=== PATIENT | female | born 1965 | race Hispanic/Latino ===

== ENCOUNTER 2020-08-23 09:09 | Inpatient (IN) | payer BC ==
[2020-08-19 15:13] VITALS: BP 150/93
--- NOTE | 2020-08-19 15:41 | PCM.EKG ---
[facility] Test Date: 2020-08-19 Test Time: 15:24:32 Pat Name: SALUD VOGEL Department: Room: Gender: F Senior Clinical Project Manager: LUIS EDUARDO : 1965 Requested By: MARCUS HASSAN Order Number: [id number] Reading MD: Measurements Intervals [place] Rate: 69 P: 53 [place]: 140 QRS: 38 QRSD: 82 T: 50 QT: 398 QTc: 426 Interpretive Statements Normal sinus rhythm No previous ECG available for comparison Please click the below link to view image of tracing.
[2020-08-19 15:45] LABS: MEAN CORP HGB 30.9 pg (26-34); PLATELET COUNT 292 10^3/uL (150-400); RED CELL DISTRIBUTION WIDTH 11.9 % (11.5-14.5)
[2020-08-19 15:46] LABS: BASOPHIL % 0.6 % (0.0-0.2); EOSINOPHIL # 0.1 10^3/uL (0.0-0.2); EOSINOPHIL % 0.9 % (0.0-5.0); LYMPHOCYTES # 2.03 10^3/uL1 (1.0-4.8); LYMPHOCYTES % 30.3 % (24.0-44.0); MONOCYTES # 0.4 10^3/uL (0.3-0.8); MONOCYTES % 5.8 % (5.0-12.0); NEUTROPHIL # 4.2 10^3/uL (1.8-7.7); NEUTROPHILS % 62.4 % (41.0-85.0)
[2020-08-19 16:03] LABS: CALCIUM 8.6 mg/dL (8.4-10.5); CARBON DIOXIDE 29.3 mmol/L (20.0-32)
--- NOTE | 2020-08-20 15:29 | NUR ---
ORTHO EDUCATION CLASS Ortho education presented verbally and written per request of Dr. Mccabe. Pt verbalized understanding of education. Signed: 08/20/20 at 1530 by TOÑITO Rosas OT
[2020-08-23] VITALS (26 sets, daily range): BP systolic 120–206; BP diastolic 75–105
[~2020-08-23] VITALS: Ht 162.6 cm; Wt 65.8 kg
--- NOTE | 2020-08-23 08:53 | PCM.HP ---
History of Present Illness Reason for Visit: (1) Osteoarthritis of left knee ICD Code: M17.12 - Unilateral primary osteoarthritis, left knee SNOMED: [id number] Was this Problem Present on Ad: Yes-DX present @time ofIP Hx of Present Illness patient complains of left knee pain worsening the past several months. Patient has tried cortisone injection and bracing in the past. Uses a cane to ambulate. Takes Ibuprofen and Tramadol for pain. Complains of night pain. Complains of pain with stairs. Review of Systems Constitutional: No: Fever, Chills, Sweats, Weakness, Malaise, Other Eyes: No: Pain, Vision change, Conjunctivae inflammation, Eyelid inflammation, Other, Redness ENT: No: Ear pain, Ear discharge, Nose pain, Nose discharge, Nose congestion, Mouth pain, Mouth swelling, Throat pain, Throat swelling, Other Respiratory: No: Cough, Dry, Shortness of breath, SOB with excertion, Wheezing, Hemoptysis, Pleuritic Pain, Sputum, Wheezing, Other Cardiovascular: No: Chest Pain, Palpitations, Orthopnea, Paroxysmal Noc. Dyspnea, Edema, Lt Headedness, Other Gastrointestinal: No: Nausea, Vomiting, Abdominal Pain, Diarrhea, Constipation, Melena, Hematochezia, Other Genitourinary: No Dysuria, No Frequency, No Incontinence, No Hematuria, No Retention, No Other Musculoskeletal: leg pain (left knee pain) Skin: No: Rash, Lesions, Jaundice, Bruising, Other Neurological: No: Weakness, Numbness, Incoordination, Change in speech, Confusion, Seizures, Other Allergies: Coded Allergies: No Known Allergies (Unverified , 08/19/20) Scheduled Amlodipine Besylate (Amlodipine Besylate), 1 TAB PO DAILY, (Reported) Cyanocobalamin (Vitamin B-12) (Vitamin B-12), 1 TAB PO QD, (Reported) Diclofenac Sodium (Diclofenac Sodium), 1 TAB PO BID, (Reported) Multivitamin (Multi Vitamin Daily), 1 TAB PO QD, (Reported) Tramadol Hcl (Tramadol Hcl), 1 TAB PO BID, (Reported) VTE VTE Risk Total Score: >5 VTE Risk Score VTE Risk: Score 0-1 = Low Risk (Aggressive mobilization; early ambulation; no VTE prophylaxis required) Score 2: Moderate Risk (Intermittent/Pneumatic Compression Device OR Lovenox/Heparin/Coumadin) Score 3-4: High Risk (Intermittent/Pneumatic Compression Device AND Lovenox/Heparin/Coumadin) Score > or =5: Highest Risk (Intermittent/Pneumatic Compression Device AND Lovenox/Heparin/Coumadin) VTE VTE Present on Admission: No Currently receiving anticoagul: No VTE Risk Total Score: >5 Exam General Appearance: Alert, Oriented X3, Cooperative, No acute distress HEENT: Atraumatic, PERRLA, EOMI, Mucous membr. moist/pink Respiratory: Clear to auscultation, Normal air movement Cardiovascular: Regular rate, Normal S1, Normal S2, No murmurs Abdominal: Normal bowel sounds, Soft, No tenderness Extremities: No clubbing, No cyanosis, No edema, Other (left knee has full extension and 120 degrees flexion. good medial and lateral stability. No swelling noted. Moderate crepitation.) Skin: No rash, No breakdown, No lesions Neuro: Normal gait Psych/Mental Status: Mental status NL, Mood NL Assessment/Plan Assessment/Plan Problems: (1) Osteoarthritis of left knee ICD Code: M17.12 - Unilateral primary osteoarthritis, left knee SNOMED: [id number] Patient History: Diabetes mellitus G8 MOTHER G8 BROTHER Hypertension G8 MOTHER G8 BROTHER G8 BROTHER G8 SISTER G8 SISTER No known health problems G8 FATHER G8 SISTER G8 SISTER 19 CHILD 19 CHILD 19 CHILD 19 CHILD No Family History of: Alzheimer's disease Asthma Cerebrovascular disorder Chronic obstructive pulmonary disease Congestive heart failure Diabetes insipidus Parkinson's disease Plan Left knee osteoarthritis- Left total knee arthroplasty scheduled for today NPO since MN will admit to floor as inpatient keep dressing intact PT/OT eval and treat- WBAT LLE, CPM, ice man, walker continue medications as prescribed; prn pain medications. DVT prophylaxis start on Xarelto tomorrow. fall and safety precautions Problem Qualifiers (1) Osteoarthritis of left knee: Osteoarthritis type: primary Qualified Codes: M17.12 - Unilateral primary osteoarthritis, left knee MARCUS SANDOVAL NP Aug 23, 2020 08:53
[2020-08-23] MEDS: VITAMIN B-12 PO SCH (09:00)
[2020-08-23] MEDS: COLACE PO SCH (09:00)
[2020-08-23] MEDS: NORVASC PO SCH (09:00)
[2020-08-23] MEDS: PEPCID PO SCH (09:00)
[2020-08-23] MEDS: LACTATED RINGERS 1,000 ML IV SCH ×2 (09:06→16:52)
[~2020-08-23 09:09] MED LIST: AMLO-169 PO; ANCEF 2 GM in NS 100ML 100 ML IV ONE; BACTROBAN OINTMENT TP ONE; CEPACOL SORE THROAT LOZENGE MM PRN; CYAN-26 PO; DECADRON ONE; DICL50TA4 PO; DIPRIVAN IV ONE; EXPAREL 266 MG/20 ML VIAL IJ ONE; LACTATED RINGERS 1,000 ML IV SCH; MULT-632 PO; NAROPIN 0.5% 5 MG/ML VIAL ONE; NS 250ML 250 ML IV ONE; SUBLIMAZE ONE; TRAM50TA PO; ULTRAM PO PRN; VANCOMYCIN HCL 1 GM ONE; VERSED ONE
[2020-08-23] MEDS ORDERED: NS 250ML 250 ML IV ONE (09:46)
[2020-08-23] MEDS ORDERED: SODIUM CHLORIDE IRR BOTTLE IR ONE (09:46)
[2020-08-23] MEDS ORDERED: WATER ONE (09:46)
[2020-08-23] MEDS ORDERED: NS 3000ML IRR IR ONE (09:46)
[2020-08-23] MEDS ORDERED: NS 100ML 100 ML IV ONE (09:46)
[2020-08-23] MEDS ORDERED: SUBLIMAZE ONE (10:16)
[2020-08-23] MEDS ORDERED: BACTROBAN OINTMENT TP ONE (11:08)
[2020-08-23] MEDS ORDERED: DILAUDID ONE (13:51)
[2020-08-23] MEDS: DILAUDID IV PRN ×3 (13:53→23:13)
[2020-08-23] MEDS ORDERED: ZOFRAN IV PRN (14:00)
[2020-08-23] MEDS ORDERED: DEMEROL ONE (14:19)
[2020-08-23] MEDS ORDERED: DEMEROL IV PRN (14:22)
--- NOTE | 2020-08-23 14:40 | OPH ---
DATE OF SURGERY: 08/23/2020 DICTATOR NAME: Dale Mccabe MD PREOPERATIVE DIAGNOSIS: Osteoarthritis of the left knee. POSTOPERATIVE DIAGNOSIS: Osteoarthritis of the left knee. OPERATIVE PROCEDURE: Left total knee arthroplasty using Medacta Sphere knee, size 5 femur, a size 4 tibia, a 17 mm insert. All components were cemented. SURGEON: Dale Mccabe MD. ANESTHESIA: General endotracheal. TOURNIQUET TIME: 64 minutes at 300 mmHg. DRAINS: None. BLOOD LOSS: 500 mL. DESCRIPTION OF INDICATIONS: The patient is a 55-year-old female with a 3-year history of severe pain about the left knee secondary to osteoarthritis. The patient has used a cane to ambulate. She takes tramadol and Voltaren for the pain. She has also tried ibuprofen in the past. The patient has pain with just household ambulation. She has had a trial of home exercise program. The x-ray showed that she has [id number]-vvco medially as well as having patellofemoral narrowing and osteophytes. The left knee has an obvious varus deformity. She has full extension and 120 degrees of flexion, good medial and lateral stability. Zofia and posterior drawer exams are negative. The patient was taken to the operating room today for left total knee arthroplasty for pain relief. DESCRIPTION OF PROCEDURE: The patient was placed on the operating table in the supine position. A general endotracheal anesthetic was given. The left thigh was padded and a tourniquet was applied. The left lower extremity was sterilely prepped and draped. The patient had the leg exsanguinated and tourniquet was inflated to 300 mmHg. The knee was flexed to 90 degrees and an anterior incision was made. The incision was taken through the skin and the subcutaneous tissue. Full-thickness flaps were developed medially and laterally. A medial parapatellar arthrotomy was performed and the patella was deviated laterally. The patient had medial and lateral meniscectomies performed. The capsule and the MCL were released around the posteromedial corner. The pes insertion was released. The patient had her osteophytes about the distal femur removed with a rongeur. The drill hole was made about the distal femur. The distal femoral cutting block that was attached to the IM amos was placed about the distal femur after the IM amos was placed down the shaft. The patient had the cutting block pinned into position. The distal femoral cut was made at 9 mm and 6 degrees of valgus. The patient then had the tibia subluxed anteriorly. Medial and lateral meniscectomies were completed. Drill hole was made about the tibia and the IM amos was placed down the shaft of the tibia. The cutting block was positioned anteromedially. Cutting block was adjusted for posterior slope, varus, valgus, as well as depth of cut and rotation. Once all the parameters were met, the cutting block was pinned into position. Tibial cut was then made with the power saw. The patient had the #2 femoral jig applied and held into position with 2 pins. It measured a size 5. The patient had the size 5 cutting block pinned into position and the anterior and posterior femoral cuts as well as the chamfer cuts were made. The knee was flexed back to 90 degrees. The tibia was subluxed anteriorly with the bent knee retractor. The patient had the tibia trialed and a size #4 had the best coverage. Tibial trial was pinned into position. The central drill hole was made. The cruciate punch was used to stabilize the tibial trial component. Trial reduction was done with a 4 tibia, 5 femur. Initially started out with a 10 insert and worked our way up to a size 17 because of anterior and posterior instability. The size 17 allowed full extension, but had excellent medial and lateral stability as well as anterior and posterior stability. There was normal tracking of the patella. The patellar osteophytes were removed and the peripheral edges were cauterized. The trial femoral component was removed and the medial and lateral femoral drill holes were made. All the trial components were then removed. The femoral sulcus cut was made. The patient then had the wound ends copiously irrigated and dried. A size 4 tibial component was cemented into position. The size 17 polyethylene component was impacted and secured with an anterior screw. The size 5 femoral component was likewise cemented. All the excess cement was removed. The joint was irrigated with Betadine-containing solution for 3 minutes. The patient then had the tourniquet released and the bleeding was controlled with the Aquamantys device. After all the bleeding was controlled, the capsule was closed with a #2 PDS in an interrupted myiqun-ie-weils manner. There was some stripping about the tibial tubercle and we used 2 Mitek large suture anchors to secure the patellar tendon insertion. The patient then had the subcutaneous closed with a 2-0 barbed Monocryl in a running manner. The skin was closed with niecy. A suction Prevena dressing was applied, reinforced with 4 x 4s, cast padding, and an Jeffry wrap. The patient was extubated in the operating room, sent to recovery in stable condition. Dale Mccabe MD DR: DANIS/CHUYITA TID: [id number] RECEIPT: [id number]
--- NOTE | 2020-08-23 15:45 | NUR ---
ARRIVAL PATIENT ARRIVED ON MED-SURG UNIT AT THIS TIME TO ROOM #338. VITAL SIGNS STABLE. RECEIVED REPORT, ASSUMED CARE FOR PATIENT. PATIENT PLACED ON PO SURGICAL VITAL SIGNS AND TELEMETRY MONITORING. WILL CONTINUE WITH PLAN OF CARE.
--- NOTE | 2020-08-23 16:10 | PRM.CONS ---
Consultation History of Present Illness History of Patient Comments Ms. Gallardo is a 55 y/o woman witha pmh right knee osteoarthritis, hypertension, and chronic back pain presenting to the hospital for a scheduled total RKA. Her pain is well controlled at this time. Patient has no acute medical problems at this time. Vitals & Lab Current Medications Medications (Trade) Dose Ordered Sig/Noah Route PRN Reason Start Time Stop Time Status Last Admin Dose Admin Cefazolin Sodium 2 gm/Sodium Chloride 100 ml @ 100 mls/hr OT ONCE IV 08/23/20 08:00 08/23/20 05:49 DC Mupirocin (Bactroban Ointment) 1 gm OT ONCE TP 08/23/20 08:00 08/23/20 10:16 DC 08/23/20 09:10 Sodium Chloride 250 ml @ ud STK-MED ONCE IV 08/23/20 06:27 08/23/20 06:27 DC Vancomycin HCl 1 ml @ ud STK-MED ONCE .ROUTE 08/23/20 06:27 08/23/20 06:27 DC Ropivacaine (Naropin 0.5% 5 Mg/ml Vial) 150 mg STK-MED ONCE .ROUTE 08/23/20 08:39 08/23/20 08:40 DC Fentanyl Citrate (Sublimaze) 50 mcg STK-MED ONCE .ROUTE 08/23/20 08:41 08/23/20 08:41 DC Propofol (Diprivan) 200 mg STK-MED ONCE IV 08/23/20 08:42 08/23/20 08:42 DC Tramadol HCl (Ultram) 50 mg Q6H PRN PO PAIN 1 - 3 08/23/20 09:00 09/22/20 08:59 Tramadol HCl (Ultram) 100 mg Q6H PRN PO PAIN 4 - 6 08/23/20 09:00 09/22/20 08:59 Rivaroxaban (Xarelto) 10 mg DAILY PO 08/24/20 09:00 09/23/20 08:59 Docusate Sodium (Colace) 100 mg DAILY PO 08/23/20 09:00 09/22/20 08:59 Throat Lozenges (Cepacol Sore Throat Lozenge) 1 each PRN PRN MM SORE THROAT 08/23/20 09:00 09/22/20 08:59 Famotidine (Pepcid) 20 mg DAILY PO 08/23/20 09:00 09/22/20 08:59 Vancomycin HCl 1 gm/Sodium Chloride 250 ml @ 175 mls/hr Q12H IV 08/23/20 22:00 08/24/20 23:26 Amlodipine Besylate (Norvasc) 5 mg DAILY PO 08/23/20 09:00 09/22/20 08:59 Cyanocobalamin (Vitamin B-12) 1,000 mcg DAILY PO 08/23/20 09:00 09/22/20 08:59 Sodium Chloride (Sodium Chloride Irr Bottle) 1,000 ml STK-MED ONCE IR 08/23/20 09:46 08/23/20 09:46 DC Sterile Water (Water) 1,000 ml STK-MED ONCE .ROUTE 08/23/20 09:46 08/23/20 09:46 DC Sodium Chloride 100 ml @ ud STK-MED ONCE IV 08/23/20 09:46 08/23/20 09:47 DC Sodium Chloride 250 ml @ ud STK-MED ONCE IV 08/23/20 09:46 08/23/20 09:47 DC Sodium Chloride (NS 3000ml Irr) 3,000 ml STK-MED ONCE IR 08/23/20 09:46 08/23/20 09:47 DC Fentanyl Citrate (Sublimaze) 50 mcg STK-MED ONCE .ROUTE 08/23/20 10:16 08/23/20 10:17 DC Mupirocin (Bactroban Ointment) 1 gm STK-MED ONCE TP 08/23/20 11:08 08/23/20 11:08 DC Acetaminophen (Tylenol) 1,000 mg Q6HR PO 08/23/20 18:00 09/22/20 17:59 Ketorolac Tromethamine (Toradol) 30 mg Q6H PRN IV PAIN 7 - 10 08/23/20 14:00 08/28/20 13:59 Ondansetron HCl (Zofran) 4 mg Q4H PRN IV NAUSEA / VOMITING 08/23/20 14:00 09/22/20 13:59 Hydromorphone HCl (Dilaudid) 2 mg STK-MED ONCE .ROUTE 08/23/20 13:51 08/23/20 13:51 DC Hydromorphone HCl (Dilaudid) 0.5 mg Q15MIN PRN IV PRN PAIN>5 UP TO 2MG MAX 08/23/20 14:30 08/23/20 14:30 DC 08/23/20 14:08 Meperidine HCl (Demerol) 100 mg STK-MED ONCE .ROUTE 08/23/20 14:19 08/23/20 14:19 DC Meperidine HCl (Demerol) 25 mg Q10MIN PRN IV PAIN 4 - 6 08/23/20 14:22 09/22/20 14:21 08/23/20 14:22 Vital Sign - Last 24 Hours 08/23/20 08/23/20 08/23/20 08/23/20 08:54 09:00 13:26 13:26 Temp 97.0 97.5 Pulse 71 79 Resp 18 18 B/P (MAP) 174/95 (121) 153/83 (106) Pulse Ox 100 97 O2 Delivery Room Air Room Air Nasal [place] O2 Flow Rate 3 4 08/23/20 08/23/20 08/23/20 08/23/20 13:35 13:40 13:45 13:50 Pulse 82 84 80 80 Resp 18 18 18 18 B/P (MAP) 200/96 (130) 206/105 (138) 188/90 (122) 188/90 (122) Pulse Ox 96 100 100 100 O2 Delivery Nasal Canula Nasal Canula Nasal Canula Nasal Canula O2 Flow Rate 3 3 3 3 08/23/20 08/23/20 08/23/20 08/23/20 13:55 14:00 14:05 14:10 Pulse 83 75 71 75 Resp 18 18 18 18 B/P (MAP) 175/96 (122) 120/81 (94) 170/80 (110) 169/96 (120) Pulse Ox 100 100 100 100 O2 Delivery Nasal Canula Nasal Canula Nasal Canula Nasal Canula O2 Flow Rate 3 3 3 3 08/23/20 08/23/20 08/23/20 08/23/20 14:15 14:20 14:25 14:30 Pulse 74 79 75 64 Resp 18 18 18 18 B/P (MAP) 159/88 (111) 157/105 (122) 140/101 (114) 150/90 (110) Pulse Ox 100 100 100 100 O2 Delivery Nasal Canula Nasal Canula Nasal Canula Nasal Canula O2 Flow Rate 3 2 2 2 08/23/20 14:35 Pulse 65 Resp 18 B/P (MAP) 154/94 (114) Pulse Ox 98 O2 Delivery Room Air Review of Systems Constitutional: No: Fever, Chills, Sweats, Weakness, Malaise, Other Eyes: No: Pain, Vision change, Conjunctivae inflammation, Eyelid inflammation, Other, Redness ENT: No: Ear pain, Ear discharge, Nose pain, Nose discharge, Nose congestion, Mouth pain, Mouth swelling, Throat pain, Throat swelling, Other Respiratory: No: Cough, Dry, Shortness of breath, SOB with excertion, Wheezing, Hemoptysis, Pleuritic Pain, Sputum, Wheezing, Other Cardiovascular: No: Chest Pain, Palpitations, Orthopnea, Paroxysmal Noc. Dyspnea, Edema, Lt Headedness, Other Gastrointestinal: No: Nausea, Vomiting, Abdominal Pain, Diarrhea, Constipation, Melena, Hematochezia, Other Genitourinary: No Dysuria, No Frequency, No Incontinence, No Hematuria, No Retention, No Other Musculoskeletal: leg pain (left knee pain) Skin: No: Rash, Lesions, Jaundice, Bruising, Other Neurological: No: Weakness, Numbness, Incoordination, Change in speech, Confusion, Seizures, Other Allergies: Coded Allergies: No Known Allergies (Unverified , 08/19/20) Scheduled Amlodipine Besylate (Amlodipine Besylate), 1 TAB PO DAILY, (Reported) Cyanocobalamin (Vitamin B-12) (Vitamin B-12), 1 TAB PO QD, (Reported) Diclofenac Sodium (Diclofenac Sodium), 1 TAB PO BID, (Reported) Multivitamin (Multi Vitamin Daily), 1 TAB PO QD, (Reported) Tramadol Hcl (Tramadol Hcl), 1 TAB PO BID, (Reported) VTE VTE Risk Total Score: 3 VTE Risk Score VTE Risk: Score 0-1 = Low Risk (Aggressive mobilization; early ambulation; no VTE prophylaxis required) Score 2: Moderate Risk (Intermittent/Pneumatic Compression Device OR Lovenox/Heparin/Coumadin) Score 3-4: High Risk (Intermittent/Pneumatic Compression Device AND Lovenox/Heparin/Coumadin) Score > or =5: Highest Risk (Intermittent/Pneumatic Compression Device AND Lovenox/Heparin/Coumadin) Assessment/Plan Assessment/Plan Assessment/Plan Left knee osteoarthritis- Left total knee arthroplasty scheduled for today keep dressing intact PT/OT eval and treat- WBAT LLE, CPM, ice man, walker continue medications as prescribed; prn pain medications. DVT prophylaxis start on Xarelto tomorrow. fall and safety precautions Resume home meds Patient History: Diabetes mellitus G8 MOTHER G8 BROTHER Hypertension G8 MOTHER G8 BROTHER G8 BROTHER G8 SISTER G8 SISTER No known health problems G8 FATHER G8 SISTER G8 SISTER 19 CHILD 19 CHILD 19 CHILD 19 CHILD No Family History of: Alzheimer's disease Asthma Cerebrovascular disorder Chronic obstructive pulmonary disease Congestive heart failure Diabetes insipidus Parkinson's disease Plan Left knee osteoarthritis- Left total knee arthroplasty scheduled for today NPO since MN will admit to floor as inpatient keep dressing intact PT/OT eval and treat- WBAT LLE, CPM, ice man, walker continue medications as prescribed; prn pain medications. DVT prophylaxis start on Xarelto tomorrow. fall and safety precautions BROOKE MONIQUE MD Aug 23, 2020 16:09
--- NOTE | 2020-08-23 16:20 | NUR ---
PAIN PATIENT CURRENTLY SCREAMING OUT IN PAIN. PATIENT RATES PAIN LEVEL AT A 20/10 IN LEFT KNEE AT SURGICAL SITE. 30MG IV KETORLAC ADMINISTERED AT THIS TIME. WILL CONTINUE WITH PLAN OF CARE.
[2020-08-23] MEDS: TORADOL IV PRN ×2 (16:21→22:14)
--- NOTE | 2020-08-23 16:22 | DIREP ---
PROCEDURE:XRAY KNEE 2 VWS-LT COMPARISON:None. INDICATIONS:POST OP, TOTAL LEFT KNEE FINDINGS: Postoperative changes of left total knee arthroplasty. The femoral and tibial components are appropriately positioned. Alignment is normal. No hardware complication. No fracture or dislocation. 2 orthopedic anchors seen within the anterior tibial tuberosity. There is expected postoperative soft tissue edema and intra-articular/subcutaneous gas about the left knee. Anterior midline skin niecy are present. CONCLUSION: Postoperative changes of left total left arthroplasty. No apparent complication. Dictated by: Jak Alejandre MD on 08/23/2020 at 04:20 PM
[2020-08-23] MEDS: THERA PO SCH (16:30)
[2020-08-23] MEDS ORDERED: TRANDATE IV PRN (16:30)
--- NOTE | 2020-08-23 16:45 | NUR ---
PATIENT STILL EXPRESSES MUCH DISCOMFORT AT HER SURGICAL SITE, KETORLAC HAS NOT IMPROVED HER PAIN LEVEL AT ALL. INFLATABLE BUILDINGS LAMINATOR NOTIFIED AT THIS TIME. RECEIVED ORDERS FOR 4MG PO VALIUM [id number]. WILL ADMINISTER AND CONTINUE WITH PLAN OF CARE.
[2020-08-23] MEDS: VALIUM PO PRN (16:59)
[2020-08-23] MEDS: TYLENOL PO SCH ×2 (18:46→23:12)
--- NOTE | 2020-08-23 19:15 | NUR ---
REPORT REPORT GIVEN TO ONCOMING SHIFT. RELINQUISHED CARE FOR PATIENT AT THIS TIME.
[2020-08-23] MEDS: ULTRAM PO PRN (19:51)
[2020-08-23] MEDS: VANCOMYCIN HCL 1 GM in NS 250ML 250 ML IV SCH (22:12)
[2020-08-24 00:23] VITALS: BP 113/70
[2020-08-24] MEDS: LACTATED RINGERS 1,000 ML IV SCH ×3 (04:00→23:08)
[2020-08-24 06:34] LABS: MEAN CORP HGB 30.7 pg (26-34); RED CELL DISTRIBUTION WIDTH 12.3 % (11.5-14.5)
[2020-08-24 07:55] VITALS: BP 128/81
[2020-08-24] MEDS: PEPCID PO SCH (08:36)
[2020-08-24] MEDS: TYLENOL PO SCH ×4 (08:36→23:08)
[2020-08-24] MEDS: XARELTO PO SCH (08:36)
[2020-08-24] MEDS: VITAMIN B-12 PO SCH (08:36)
[2020-08-24] MEDS: COLACE PO SCH (08:36)
[2020-08-24] MEDS: NORVASC PO SCH (08:36)
[2020-08-24] MEDS: THERA PO SCH (08:37)
--- NOTE | 2020-08-24 09:19 | NUR ---
DISCHARGE PLAN CM VISITED WITH PATIENT REGARDING D/C PLAN AND GOAL. PATIENT LIVES AT HOME WITH HER SPOUSE IN [place]. SHE IS IND OF [facility]. SHE WILL NEED A WALKER ON D/C. ORDER FAXED TO [facility]. PATIENT STATED SHE WOULD LIKE TO FOLLOW UP WITH [facility] IN [place] ON DISCHARGE FOR THERAPY. DISCHARGE PLAN IS FOR PATIENT TO D/C BACK HOME TO ROUTINE CARE WITH HER SPOUSE AND FOLLOW UP WITH [facility] IN [place]. Addendum: 08/24/20 at 1050 by Katie Hobbs RN - Aircraft Layout Worker RN [facility] OUT PATIENT THERAPY PATIENT WILL FOLLOW UP WITH [facility] OP/PT Sunday AT 2PM, AT [address] [facility], ARRIVE 30MINUTES EARLY WITH DRIVERS LICENSE AND INSURANCE INFORMATION.
[2020-08-24] MEDS: VALIUM PO PRN (09:20)
[2020-08-24] MEDS: ULTRAM PO PRN (09:21)
--- NOTE | 2020-08-24 09:29 | PRM.PN ---
Subjective Subjective Date: Aug 24, 2020 Time: 09:24 Subjective patient states she is doing better complains of pain last night left knee dressing intact VSS labs reviewed; stable hgb 9.7 Patient History: Diabetes mellitus G8 MOTHER G8 BROTHER Hypertension G8 MOTHER G8 BROTHER G8 BROTHER G8 SISTER G8 SISTER No known health problems G8 FATHER G8 SISTER G8 SISTER 19 CHILD 19 CHILD 19 CHILD 19 CHILD No Family History of: Alzheimer's disease Asthma Cerebrovascular disorder Chronic obstructive pulmonary disease Congestive heart failure Diabetes insipidus Parkinson's disease VTE VTE Risk Total Score: >5 VTE Risk Score VTE Risk: Score 0-1 = Low Risk (Aggressive mobilization; early ambulation; no VTE prophylaxis required) Score 2: Moderate Risk (Intermittent/Pneumatic Compression Device OR Lovenox/Heparin/Coumadin) Score 3-4: High Risk (Intermittent/Pneumatic Compression Device AND Lovenox/Heparin/Coumadin) Score > or =5: Highest Risk (Intermittent/Pneumatic Compression Device AND Lovenox/Heparin/Coumadin) Review of Systems Constitutional: No: Fever, Chills, Sweats, Weakness, Malaise, Other Eyes: No: Pain, Vision change, Conjunctivae inflammation, Eyelid inflammation, Other, Redness ENT: No: Ear pain, Ear discharge, Nose pain, Nose discharge, Nose congestion, Mouth pain, Mouth swelling, Throat pain, Throat swelling, Other Respiratory: No: Cough, Dry, Shortness of breath, SOB with excertion, Wheezing, Hemoptysis, Pleuritic Pain, Sputum, Wheezing, Other Cardiovascular: No: Chest Pain, Palpitations, Orthopnea, Paroxysmal Noc. Dys pnea, Edema, Lt Headedness, Other Gastrointestinal: No: Nausea, Vomiting, Abdominal Pain, Diarrhea, Constipation, Melena, Hematochezia, Other Genitourinary: No Dysuria, No Frequency, No Incontinence, No Hematuria, No Retention, No Other Musculoskeletal: leg pain (left knee pain) Skin: No: Rash, Lesions, Jaundice, Bruising, Other Neurological: No: Weakness, Numbness, Incoordination, Change in speech, Confusion, Seizures, Other Allergies: Coded Allergies: No Known Allergies (Unverified , 08/19/20) Scheduled Amlodipine Besylate (Amlodipine Besylate), 1 TAB PO DAILY, (Reported) Cyanocobalamin (Vitamin B-12) (Vitamin B-12), 1 TAB PO QD, (Reported) Diclofenac Sodium (Diclofenac Sodium), 1 TAB PO BID, (Reported) Multivitamin (Multi Vitamin Daily), 1 TAB PO QD, (Reported) Tramadol Hcl (Tramadol Hcl), 1 TAB PO BID, (Reported) Objective Vitals and I/O Vital Sign - Last 24 Hours 08/23/20 08/23/20 08/23/20 08/23/20 13:26 13:26 13:35 13:40 Temp 97.5 Pulse 79 82 84 Resp 18 18 18 B/P (MAP) 153/83 (106) 200/96 (130) 206/105 (138) Pulse Ox 97 96 100 O2 Delivery Nasal Canula Nasal Canula Nasal Canula O2 Flow Rate 3 4 3 3 08/23/20 08/23/20 08/23/20 08/23/20 13:45 13:50 13:55 14:00 Pulse 80 80 83 75 Resp 18 18 18 18 B/P (MAP) 188/90 (122) 188/90 (122) 175/96 (122) 120/81 (94) Pulse Ox 100 100 100 100 O2 Delivery Nasal Canula Nasal Canula Nasal Canula Nasal Canula O2 Flow Rate 3 3 3 3 08/23/20 08/23/20 08/23/20 08/23/20 14:05 14:10 14:15 14:20 Pulse 71 75 74 79 Resp 18 18 18 18 B/P (MAP) 170/80 (110) 169/96 (120) 159/88 (111) 157/105 (122) Pulse Ox 100 100 100 100 O2 Delivery Nasal Canula Nasal Canula Nasal Canula Nasal Canula O2 Flow Rate 3 3 3 2 08/23/20 08/23/20 08/23/20 08/23/20 14:25 14:30 14:35 14:40 Pulse 75 64 65 63 Resp 18 18 18 18 B/P (MAP) 140/101 (114) 150/90 (110) 154/94 (114) 165/98 (120) Pulse Ox 100 100 98 99 O2 Delivery Nasal Canula Nasal Canula Room Air Room Air O2 Flow Rate 2 2 08/23/20 08/23/20 08/23/20 08/23/20 14:45 14:50 14:55 15:00 Pulse 65 74 67 77 Resp 18 18 18 18 B/P (MAP) 158/93 (114) 166/90 (115) 158/90 (112) 165/98 (120) Pulse Ox 97 99 97 98 O2 Delivery Room Air Room Air Room Air Room Air 08/23/20 08/23/20 08/23/20 08/23/20 15:05 15:10 15:15 15:20 Pulse 67 67 77 70 Resp 18 18 18 18 B/P (MAP) 161/93 (115) 153/100 (117) 156/86 (109) 147/75 (99) Pulse Ox 97 98 97 96 O2 Delivery Room Air Room Air Room Air Room Air 08/23/20 08/23/20 08/23/20 08/23/20 17:09 17:36 19:09 19:23 Temp 98.7 99.2 Pulse 104 104 103 Resp 16 B/P (MAP) 161/83 (109) 135/82 (99) Pulse Ox 94 94 93 O2 Delivery Room Air Room Air Room Air 08/23/20 08/23/20 08/24/20 08/24/20 19:38 21:00 00:23 07:55 Temp 99.0 99.0 Pulse 86 83 70 Resp 18 16 20 B/P (MAP) 113/70 (84) 128/81 (97) Pulse Ox 96 90 95 O2 Delivery Room Air Room Air Room Air 08/24/20 08/24/20 08/24/20 08:36 08:38 09:11 Pulse 70 79 Resp 18 B/P (MAP) 128/81 Pulse Ox 98 O2 Delivery Room Air Room Air Intake and Output 08/24/20 07:00 Intake Total 5890 ml Output Total 100 ml Balance 5790 ml General: Alert, Oriented X3, Cooperative, No acute distress HEENT: Atraumatic, PERRLA, EOMI, Mucous membr. moist/pink Lungs: Clear to auscultation, Normal air movement Heart: Regular rate, Normal S1, Normal S2, No murmurs Abdomen: Normal bowel sounds, Soft, No tenderness Extremities: No clubbing, No cyanosis, No edema, Other (left knee dressing intact; neuros intact) Neuro: Normal gait Psych/Mental Status: Mental status NL, Mood NL All Results(Lab/Rad) Laboratory Tests Test 08/24/20 05:53 White Blood Count 12.0 10^3/uL Red Blood Count 3.16 10^6/uL Hemoglobin 9.7 g/dL Hematocrit 29.6 % Mean Corpuscular Volume 93.7 fL Mean Corpuscular Hemoglobin 30.7 pg Mean Corpuscular Hemoglobin Concent 32.8 g/dL Red Cell Distribution Width 12.3 % Platelet Count 225 10^3/uL Mean Platelet Volume 9.7 fL Current Medications Medications (Trade) Dose Ordered Sig/Noah Route PRN Reason Start Time Stop Time Status Last Admin Dose Admin Cefazolin Sodium 2 gm/Sodium Chloride 100 ml @ 100 mls/hr OT ONCE IV 08/23/20 08:00 08/23/20 05:49 DC Mupirocin (Bactroban Ointment) 1 gm OT ONCE TP 08/23/20 08:00 08/23/20 10:16 DC 08/23/20 09:10 Sodium Chloride 250 ml @ ud STK-MED ONCE IV 08/23/20 06:27 08/23/20 06:27 DC Vancomycin HCl 1 ml @ ud STK-MED ONCE .ROUTE 08/23/20 06:27 08/23/20 06:27 DC Ropivacaine (Naropin 0.5% 5 Mg/ml Vial) 150 mg STK-MED ONCE .ROUTE 08/23/20 08:39 08/23/20 08:40 DC Fentanyl Citrate (Sublimaze) 50 mcg STK-MED ONCE .ROUTE 08/23/20 08:41 08/23/20 08:41 DC Propofol (Diprivan) 200 mg STK-MED ONCE IV 08/23/20 08:42 08/23/20 08:42 DC Tramadol HCl (Ultram) 50 mg Q6H PRN PO PAIN 1 - 3 08/23/20 09:00 09/22/20 08:59 Tramadol HCl (Ultram) 100 mg Q6H PRN PO PAIN 4 - 6 08/23/20 09:00 09/22/20 08:59 08/24/20 09:21 Rivaroxaban (Xarelto) 10 mg DAILY PO 08/24/20 09:00 09/23/20 08:59 08/24/20 08:36 Docusate Sodium (Colace) 100 mg DAILY PO 08/23/20 09:00 09/22/20 08:59 08/24/20 08:36 Throat Lozenges (Cepacol Sore Throat Lozenge) 1 each PRN PRN MM SORE THROAT 08/23/20 09:00 09/22/20 08:59 Famotidine (Pepcid) 20 mg DAILY PO 08/23/20 09:00 09/22/20 08:59 08/24/20 08:36 Vancomycin HCl 1 gm/Sodium Chloride 250 ml @ 175 mls/hr Q12H IV 08/23/20 22:00 08/24/20 23:26 08/23/20 22:12 Amlodipine Besylate (Norvasc) 5 mg DAILY PO 08/23/20 09:00 09/22/20 08:59 08/24/20 08:36 Cyanocobalamin (Vitamin B-12) 1,000 mcg DAILY PO 08/23/20 09:00 09/22/20 08:59 08/24/20 08:36 Sodium Chloride (Sodium Chloride Irr Bottle) 1,000 ml STK-MED ONCE IR 08/23/20 09:46 08/23/20 09:46 DC Sterile Water (Water) 1,000 ml STK-MED ONCE .ROUTE 08/23/20 09:46 08/23/20 09:46 DC Sodium Chloride 100 ml @ ud STK-MED ONCE IV 08/23/20 09:46 08/23/20 09:47 DC Sodium Chloride 250 ml @ ud STK-MED ONCE IV 08/23/20 09:46 08/23/20 09:47 DC Sodium Chloride (NS 3000ml Irr) 3,000 ml STK-MED ONCE IR 08/23/20 09:46 08/23/20 09:47 DC Fentanyl Citrate (Sublimaze) 50 mcg STK-MED ONCE .ROUTE 08/23/20 10:16 08/23/20 10:17 DC Mupirocin (Bactroban Ointment) 1 gm STK-MED ONCE TP 08/23/20 11:08 08/23/20 11:08 DC Acetaminophen (Tylenol) 1,000 mg Q6HR PO 08/23/20 18:00 09/22/20 17:59 08/24/20 08:36 Ketorolac Tromethamine (Toradol) 30 mg Q6H PRN IV PAIN 7 - 08/23/20 14:00 08/28/20 13:59 08/23/20 22:14 Ondansetron HCl (Zofran) 4 mg Q4H PRN IV NAUSEA / VOMITING 08/23/20 14:00 09/22/20 13:59 Hydromorphone HCl (Dilaudid) 2 mg STK-MED ONCE .ROUTE 08/23/20 13:51 08/23/20 13:51 DC Hydromorphone HCl (Dilaudid) 0.5 mg Q15MIN PRN IV PRN PAIN>5 UP TO 2MG MAX 08/23/20 14:30 08/23/20 14:30 DC 08/23/20 14:08 Meperidine HCl (Demerol) 100 mg STK-MED ONCE .ROUTE 08/23/20 14:19 08/23/20 14:19 DC Meperidine HCl (Demerol) 25 mg Q10MIN PRN IV PAIN 4 - 6 08/23/20 14:22 09/22/20 14:21 08/23/20 14:22 Labetalol HCl (Trandate) 10 mg Q4H PRN IV HYPERTENSION 08/23/20 16:30 09/22/20 16:29 Diazepam (Valium) 4 mg Q8H PRN PO MUSCLE SPASM 08/23/20 17:00 09/22/20 16:59 08/24/20 09:20 Hydromorphone HCl (Dilaudid) 2 mg Q4H PRN IV PAIN 7 - 10 08/23/20 23:30 09/22/20 23:29 08/23/20 23:13 Course Sepsis Screening Results: Posi: NEGATIVE Sepsis Qualifier/Stage: NO DEFINITE RISK Vitals & review Data Vital Sign - Last 24 Hours 08/23/20 08/23/20 08/23/20 08/23/20 13:26 13:26 13:35 13:40 Temp 97.5 Pulse 79 82 84 Resp 18 18 18 B/P (MAP) 153/83 (106) 200/96 (130) 206/105 (138) Pulse Ox 97 96 100 O2 Delivery Nasal Canula Nasal Canula Nasal Canula O2 Flow Rate 3 4 3 3 08/23/20 08/23/20 08/23/20 08/23/20 13:45 13:50 13:55 14:00 Pulse 80 80 83 75 Resp 18 18 18 18 B/P (MAP) 188/90 (122) 188/90 (122) 175/96 (122) 120/81 (94) Pulse Ox 100 100 100 100 O2 Delivery Nasal Canula Nasal Canula Nasal Canula Nasal Canula O2 Flow Rate 3 3 3 3 08/23/20 08/23/20 08/23/20 08/23/20 14:05 14:10 14:15 14:20 Pulse 71 75 74 79 Resp 18 18 18 18 B/P (MAP) 170/80 (110) 169/96 (120) 159/88 (111) 157/105 (122) Pulse Ox 100 100 100 100 O2 Delivery Nasal Canula Nasal Canula Nasal Canula Nasal Canula O2 Flow Rate 3 3 3 2 08/23/20 08/23/20 08/23/20 08/23/20 14:25 14:30 14:35 14:40 Pulse 75 64 65 63 Resp 18 18 18 18 B/P (MAP) 140/101 (114) 150/90 (110) 154/94 (114) 165/98 (120) Pulse Ox 100 100 98 99 O2 Delivery Nasal Canula Nasal Canula Room Air Room Air O2 Flow Rate 2 2 08/23/20 08/23/20 08/23/20 08/23/20 14:45 14:50 14:55 15:00 Pulse 65 74 67 77 Resp 18 18 18 18 B/P (MAP) 158/93 (114) 166/90 (115) 158/90 (112) 165/98 (120) Pulse Ox 97 99 97 98 O2 Delivery Room Air Room Air Room Air Room Air 08/23/20 08/23/20 08/23/20 08/23/20 15:05 15:10 15:15 15:20 Pulse 67 67 77 70 Resp 18 18 18 18 B/P (MAP) 161/93 (115) 153/100 (117) 156/86 (109) 147/75 (99) Pulse Ox 97 98 97 96 O2 Delivery Room Air Room Air Room Air Room Air 08/23/20 08/23/20 08/23/20 08/23/20 17:09 17:36 19:09 19:23 Temp 98.7 99.2 Pulse 104 104 103 Resp 16 B/P (MAP) 161/83 (109) 135/82 (99) Pulse Ox 94 94 93 O2 Delivery Room Air Room Air Room Air 08/23/20 08/23/20 08/24/20 08/24/20 19:38 21:00 00:23 07:55 Temp 99.0 99.0 Pulse 86 83 70 Resp 18 16 20 B/P (MAP) 113/70 (84) 128/81 (97) Pulse Ox 96 90 95 O2 Delivery Room Air Room Air Room Air 08/24/20 08/24/20 08/24/20 08:36 08:38 09:11 Pulse 70 79 Resp 18 B/P (MAP) 128/81 Pulse Ox 98 O2 Delivery Room Air Room Air Intake and Output 08/24/20 07:00 Intake Total 5890 ml Output Total 100 ml Balance 5790 ml Laboratory Tests Test 08/24/20 05:53 White Blood Count 12.0 10^3/uL Red Blood Count 3.16 10^6/uL Hemoglobin 9.7 g/dL Hematocrit 29.6 % Mean Corpuscular Volume 93.7 fL Mean Corpuscular Hemoglobin 30.7 pg Mean Corpuscular Hemoglobin Concent 32.8 g/dL Red Cell Distribution Width 12.3 % Platelet Count 225 10^3/uL Mean Platelet Volume 9.7 fL Current Medications Medications (Trade) Dose Ordered Sig/Noah PRN Reason Start Time Stop Time Status Last Admin Acetaminophen (Tylenol) 1,000 mg Q6HR 08/23/20 18:00 09/22/20 17:59 08/24/20 08:36 Amlodipine Besylate (Norvasc) 5 mg DAILY 08/23/20 09:00 09/22/20 08:59 08/24/20 08:36 Cyanocobalamin (Vitamin B-12) 1,000 mcg DAILY 08/23/20 09:00 09/22/20 08:59 08/24/20 08:36 Diazepam (Valium) 4 mg Q8H PRN MUSCLE SPASM 08/23/20 17:00 09/22/20 16:59 08/24/20 09:20 Docusate Sodium (Colace) 100 mg DAILY 08/23/20 09:00 09/22/20 08:59 08/24/20 08:36 Famotidine (Pepcid) 20 mg DAILY 08/23/20 09:00 09/22/20 08:59 08/24/20 08:36 Hydromorphone HCl (Dilaudid) 2 mg Q4H PRN PAIN 7 - 10 08/23/20 23:30 09/22/20 23:29 08/23/20 23:13 Ketorolac Tromethamine (Toradol) 30 mg Q6H PRN PAIN 7 - 10 08/23/20 14:00 08/28/20 13:59 08/23/20 22:14 Labetalol HCl (Trandate) 10 mg Q4H PRN HYPERTENSION 08/23/20 16:30 09/22/20 16:29 Meperidine HCl (Demerol) 25 mg Q10MIN PRN PAIN 4 - 6 08/23/20 14:22 09/22/20 14:21 08/23/20 14:22 Ondansetron HCl (Zofran) 4 mg Q4H PRN NAUSEA / VOMITING 08/23/20 14:00 09/22/20 13:59 Rivaroxaban (Xarelto) 10 mg DAILY 08/24/20 09:00 09/23/20 08:59 08/24/20 08:36 Throat Lozenges (Cepacol Sore Throat Lozenge) 1 each PRN PRN SORE THROAT 08/23/20 09:00 09/22/20 08:59 Tramadol HCl (Ultram) 50 mg Q6H PRN PAIN 1 - 3 08/23/20 09:00 09/22/20 08:59 Tramadol HCl (Ultram) 100 mg Q6H PRN PAIN 4 - 6 08/23/20 09:00 09/22/20 08:59 08/24/20 09:21 Vancomycin HCl 1 gm/Sodium Chloride 250 ml @ 175 mls/hr Q12H 08/23/20 22:00 08/24/20 23:26 08/23/20 22:12 LEVEL 1 SEPSIS INFECTION CRITE: ABX Therapy, Recent Invasive Procedure LEVEL 2-SIRS (LIST ALL THAT AP: None/Not assessed Cardiovascular Evidence: Not Assessed or None Hematologic Evidence: None/Not assessed Hepatic Evidence: None/Not assessed Metabolic Evidence: None/Not assessed Neurological Evidence: None/Not assessed Respiratory Evidence: None/Not assessed Renal Evidence: None/Not assessed O2 Sat by Pulse Oximetry: 98 Oxygen Flow Rate: 2 Assessment/Plan Assessment/Plan Assessment/Plan Problems: (1) Osteoarthritis of left knee Status: Chronic ICD Code: M17.12 - Unilateral primary osteoarthritis, left knee SNOMED: 700053305972192 (2) Anemia following surgery ICD Code: D64.9 - Anemia, unspecified SNOMED: 275926874, [id number] Plan Left knee osteoarthritis- Left total knee arthroplasty POD #1 keep dressing intact PT/OT eval and treat- WBAT LLE, CPM, ice man, walker continue medications as prescribed; prn pain medications. DVT prophylaxis start on Xarelto fall and safety precautions remove billingsley Anemia- post surgical. hgb 12 to 9.7 today, no active bleeding noted Problem Qualifiers (1) Osteoarthritis of left knee: Osteoarthritis type: primary Qualified Codes: M17.12 - Unilateral primary osteoarthritis, left knee MARCUS SANDOVAL NP Aug 24, 2020 09:29
[2020-08-24] MEDS: VANCOMYCIN HCL 1 GM in NS 250ML 250 ML IV SCH ×2 (10:00→20:36)
[2020-08-24 11:58] VITALS: BP 127/83
[2020-08-24] MEDS: DILAUDID IV PRN ×2 (16:13→20:37)
[2020-08-24 16:27] VITALS: BP 123/72
[2020-08-24 21:05] VITALS: BP 141/82
[2020-08-25] VITALS (13 sets, daily range): BP systolic 119–152; BP diastolic 65–96
[2020-08-25] MEDS: ULTRAM PO PRN (00:29)
[2020-08-25] MEDS: DILAUDID IV PRN ×2 (00:39→10:42)
[2020-08-25] MEDS: TORADOL IV PRN ×3 (03:43→22:25)
[2020-08-25 04:55] LABS: RED CELL DISTRIBUTION WIDTH 12.3 % (11.5-14.5)
[2020-08-25] MEDS: TYLENOL PO SCH ×3 (05:31→19:21)
[2020-08-25] MEDS ORDERED: EXPAREL 266 MG/20 ML VIAL IJ ONE (08:00)
[2020-08-25] MEDS: VITAMIN B-12 PO SCH (08:14)
[2020-08-25] MEDS: THERA PO SCH (08:14)
[2020-08-25] MEDS: COLACE PO SCH (08:14)
[2020-08-25] MEDS: PEPCID PO SCH (08:15)
[2020-08-25] MEDS: XARELTO PO SCH (08:15)
[2020-08-25] MEDS: NORVASC PO SCH (08:15)
--- NOTE | 2020-08-25 09:10 | PRM.PN ---
Subjective Subjective Date: Aug 25, 2020 Time: 08:50 Subjective patient laying in bed, about to work with OT complains of pain, nurse just gave the patient morphine for pain pain of a 7 of 0-10 scale VSS Patient History: Diabetes mellitus G8 MOTHER G8 BROTHER Hypertension G8 MOTHER G8 BROTHER G8 BROTHER G8 SISTER G8 SISTER No known health problems G8 FATHER G8 SISTER G8 SISTER 19 CHILD 19 CHILD 19 CHILD 19 CHILD No Family History of: Alzheimer's disease Asthma Cerebrovascular disorder Chronic obstructive pulmonary disease Congestive heart failure Diabetes insipidus Parkinson's disease VTE VTE Risk Total Score: >5 VTE Risk Score VTE Risk: Score 0-1 = Low Risk (Aggressive mobilization; early ambulation; no VTE prophylaxis required) Score 2: Moderate Risk (Intermittent/Pneumatic Compression Device OR Lovenox/Heparin/Coumadin) Score 3-4: High Risk (Intermittent/Pneumatic Compression Device AND Lovenox/Heparin/Coumadin) Score > or =5: Highest Risk (Intermittent/Pneumatic Compression Device AND Lovenox/Heparin/Coumadin) Review of Systems Constitutional: No: Fever, Chills, Sweats, Weakness, Malaise, Other Eyes: No: Pain, Vision change, Conjunctivae inflammation, Eyelid inflammation, Other, Redness ENT: No: Ear pain, Ear discharge, Nose pain, Nose discharge, Nose congestion, Mouth pain, Mouth swelling, Throat pain, Throat swelling, Other Respiratory: No: Cough, Dry, Shortness of breath, SOB with excertion, Wheezing, Hemoptysis, Pleuritic Pain, Sputum, Wheezing, Other Cardiovascular: No: Chest Pain, Palpitations, Orthopnea, Paroxysmal Noc. Dyspnea, Edema, Lt Headedness, Other Gastrointestinal: No: Nausea, Vomiting, Abdominal Pain, Diarrhea, Constipation, Melena, Hematochezia, Other Genitourinary: No Dysuria, No Frequency, No Incontinence, No Hematuria, No Retention, No Other Musculoskeletal: leg pain (left knee pain) Skin: No: Rash, Lesions, Jaundice, Bruising, Other Neurological: No: Weakness, Numbness, Incoordination, Change in speech, Confusion, Seizures, Other Allergies: Coded Allergies: No Known Allergies (Unverified , 08/19/20) Scheduled Amlodipine Besylate (Amlodipine Besylate), 1 TAB PO DAILY, (Reported) Cyanocobalamin (Vitamin B-12) (Vitamin B-12), 1 TAB PO QD, (Reported) Diclofenac Sodium (Diclofenac Sodium), 1 TAB PO BID, (Reported) Multivitamin (Multi Vitamin Daily), 1 TAB PO QD, (Reported) Tramadol Hcl (Tramadol Hcl), 1 TAB PO BID, (Reported) Objective Vitals and I/O Vital Sign - Last 24 Hours 08/24/20 08/24/20 08/24/20 08/24/20 09:11 11:58 16:27 20:30 Temp 99.2 98.3 Pulse 79 84 79 Resp 18 19 19 B/P (MAP) 127/83 (98) 123/72 (89) Pulse Ox 98 96 88 O2 Delivery Room Air Room Air 08/24/20 08/24/20 08/25/20 08/25/20 21:00 21:05 00:40 04:11 Temp 99.7 99.2 98.6 Pulse 81 79 79 78 Resp 18 20 21 B/P (MAP) 141/82 (101) 140/96 (111) 134/80 (98) Pulse Ox 91 94 97 94 O2 Delivery Room Air 08/25/20 08/25/20 08:15 08:33 Temp 98.2 Pulse 78 76 Resp 16 B/P (MAP) 134/80 128/82 (97) Pulse Ox 95 Intake and Output 08/25/20 06:59 Intake Total 490 ml Output Total 4375 ml Balance -3885 ml General: Alert, Oriented X3, Cooperative, No acute distress HEENT: Atraumatic, PERRLA, EOMI, Mucous membr. moist/pink Lungs: Clear to auscultation, Normal air movement Heart: Regular rate, Normal S1, Normal S2, No murmurs Abdomen: Normal bowel sounds, Soft, No tenderness Extremities: No clubbing, No cyanosis, No edema, Other (left knee dressing intact; neuros intact) Neuro: Normal gait Psych/Mental Status: Mental status NL, Mood NL All Results(Lab/Rad) Laboratory Tests Test 08/24/20 05:53 White Blood Count 12.0 10^3/uL Red Blood Count 3.16 10^6/uL Hemoglobin 9.7 g/dL Hematocrit 29.6 % Mean Corpuscular Volume 93.7 fL Mean Corpuscular Hemoglobin 30.7 pg Mean Corpuscular Hemoglobin Concent 32.8 g/dL Red Cell Distribution Width 12.3 % Platelet Count 225 10^3/uL Mean Platelet Volume 9.7 fL Current Medications Medications (Trade) Dose Ordered Sig/Noah Route PRN Reason Start Time Stop Time Status Last Admin Dose Admin Cefazolin Sodium 2 gm/Sodium Chloride 100 ml @ 100 mls/hr OT ONCE IV 08/23/20 08:00 08/23/20 05:49 DC Mupirocin (Bactroban Ointment) 1 gm OT ONCE TP 08/23/20 08:00 08/23/20 10:16 DC 08/23/20 09:10 Sodium Chloride 250 ml @ ud STK-MED ONCE IV 08/23/20 06:27 08/23/20 06:27 DC Vancomycin HCl 1 ml @ ud STK-MED ONCE .ROUTE 08/23/20 06:27 08/23/20 06:27 DC Ropivacaine (Naropin 0.5% 5 Mg/ml Vial) 150 mg STK-MED ONCE .ROUTE 08/23/20 08:39 08/23/20 08:40 DC Fentanyl Citrate (Sublimaze) 50 mcg STK-MED ONCE .ROUTE 08/23/20 08:41 08/23/20 08:41 DC Propofol (Diprivan) 200 mg STK-MED ONCE IV 08/23/20 08:42 08/23/20 08:42 DC Tramadol HCl (Ultram) 50 mg Q6H PRN PO PAIN 1 - 3 08/23/20 09:00 09/22/20 08:59 Tramadol HCl (Ultram) 100 mg Q6H PRN PO PAIN 4 - 6 08/23/20 09:00 09/22/20 08:59 08/24/20 09:21 Rivaroxaban (Xarelto) 10 mg DAILY PO 08/24/20 09:00 09/23/20 08:59 08/24/20 08:36 Docusate Sodium (Colace) 100 mg DAILY PO 08/23/20 09:00 09/22/20 08:59 08/24/20 08:36 Throat Lozenges (Cepacol Sore Throat Lozenge) 1 each PRN PRN MM SORE THROAT 08/23/20 09:00 09/22/20 08:59 Famotidine (Pepcid) 20 mg DAILY PO 08/23/20 09:00 09/22/20 08:59 08/24/20 08:36 Vancomycin HCl 1 gm/Sodium Chloride 250 ml @ 175 mls/hr Q12H IV 08/23/20 22:00 08/24/20 23:26 08/23/20 22:12 Amlodipine Besylate (Norvasc) 5 mg DAILY PO 08/23/20 09:00 09/22/20 08:59 08/24/20 08:36 Cyanocobalamin (Vitamin B-12) 1,000 mcg DAILY PO 08/23/20 09:00 09/22/20 08:59 08/24/20 08:36 Sodium Chloride (Sodium Chloride Irr Bottle) 1,000 ml STK-MED ONCE IR 08/23/20 09:46 08/23/20 09:46 DC Sterile Water (Water) 1,000 ml STK-MED ONCE .ROUTE 08/23/20 09:46 08/23/20 09:46 DC Sodium Chloride 100 ml @ ud STK-MED ONCE IV 08/23/20 09:46 08/23/20 09:47 DC Sodium Chloride 250 ml @ ud STK-MED ONCE IV 08/23/20 09:46 08/23/20 09:47 DC Sodium Chloride (NS 3000ml Irr) 3,000 ml STK-MED ONCE IR 08/23/20 09:46 08/23/20 09:47 DC Fentanyl Citrate (Sublimaze) 50 mcg STK-MED ONCE .ROUTE 08/23/20 10:16 08/23/20 10:17 DC Mupirocin (Bactroban Ointment) 1 gm STK-MED ONCE TP 08/23/20 11:08 08/23/20 11:08 DC Acetaminophen (Tylenol) 1,000 mg Q6HR PO 08/23/20 18:00 09/22/20 17:59 08/24/20 08:36 Ketorolac Tromethamine (Toradol) 30 mg Q6H PRN IV PAIN 7 - 10 08/23/20 14:00 08/28/20 13:59 08/23/20 22:14 Ondansetron HCl (Zofran) 4 mg Q4H PRN IV NAUSEA / VOMITING 08/23/20 14:00 09/22/20 13:59 Hydromorphone HCl (Dilaudid) 2 mg STK-MED ONCE .ROUTE 08/23/20 13:51 08/23/20 13:51 DC Hydromorphone HCl (Dilaudid) 0.5 mg Q15MIN PRN IV PRN PAIN>5 UP TO 2MG MAX 08/23/20 14:30 08/23/20 14:30 DC 08/23/20 14:08 Meperidine HCl (Demerol) 100 mg STK-MED ONCE .ROUTE 08/23/20 14:19 08/23/20 14:19 DC Meperidine HCl (Demerol) 25 mg Q10MIN PRN IV PAIN 4 - 6 08/23/20 14:22 09/22/20 14:21 08/23/20 14:22 Labetalol HCl (Trandate) 10 mg Q4H PRN IV HYPERTENSION 08/23/20 16:30 09/22/20 16:29 Diazepam (Valium) 4 mg Q8H PRN PO MUSCLE SPASM 08/23/20 17:00 09/22/20 16:59 08/24/20 09:20 Hydromorphone HCl (Dilaudid) 2 mg Q4H PRN IV PAIN 7 - 08/23/20 23:30 09/22/20 23:29 08/23/20 23:13 Course Sepsis Screening Results: Posi: NEGATIVE Sepsis Qualifier/Stage: NO DEFINITE RISK Vitals & review Data Vital Sign - Last 24 Hours 08/23/20 08/23/20 08/23/20 08/23/20 13:26 13:26 13:35 13:40 Temp 97.5 Pulse 79 82 84 Resp 18 18 18 B/P (MAP) 153/83 (106) 200/96 (130) 206/105 (138) Pulse Ox 97 96 100 O2 Delivery Nasal Canula Nasal Canula Nasal Canula O2 Flow Rate 3 4 3 3 08/23/20 08/23/20 08/23/20 08/23/20 13:45 13:50 13:55 14:00 Pulse 80 80 83 75 Resp 18 18 18 18 B/P (MAP) 188/90 (122) 188/90 (122) 175/96 (122) 120/81 (94) Pulse Ox 100 100 100 100 O2 Delivery Nasal Can[place] Nasal Can[place] Nasal Canula Nasal Canula O2 Flow Rate 3 3 3 3 08/23/20 08/23/20 08/23/20 08/23/20 14:05 14:10 14:15 14:20 Pulse 71 75 74 79 Resp 18 18 18 18 B/P (MAP) 170/80 (110) 169/96 (120) 159/88 (111) 157/105 (122) Pulse Ox 100 100 100 100 O2 Delivery Nasal Can[place] Nasal Can[place] Nasal Canula Nasal Canula O2 Flow Rate 3 3 3 2 08/23/20 08/23/20 08/23/20 08/23/20 14:25 14:30 14:35 14:40 Pulse 75 64 65 63 Resp 18 18 18 18 B/P (MAP) 140/101 (114) 150/90 (110) 154/94 (114) 165/98 (120) Pulse Ox 100 100 98 99 O2 Delivery Nasal Can[place] Nasal [place] Room Air Room Air O2 Flow Rate 2 2 08/23/20 08/23/20 08/23/20 08/23/20 14:45 14:50 14:55 15:00 Pulse 65 74 67 77 Resp 18 18 18 18 B/P (MAP) 158/93 (114) 166/90 (115) 158/90 (112) 165/98 (120) Pulse Ox 97 99 97 98 O2 Delivery Room Air Room Air Room Air Room Air 08/23/20 08/23/20 08/23/20 08/23/20 15:05 15:10 15:15 15:20 Pulse 67 67 77 70 Resp 18 18 18 18 B/P (MAP) 161/93 (115) 153/100 (117) 156/86 (109) 147/75 (99) Pulse Ox 97 98 97 96 O2 Delivery Room Air Room Air Room Air Room Air 08/23/20 08/23/20 08/23/20 08/23/20 17:09 17:36 19:09 19:23 Temp 98.7 99.2 Pulse 104 104 103 Resp 16 B/P (MAP) 161/83 (109) 135/82 (99) Pulse Ox 94 94 93 O2 Delivery Room Air Room Air Room Air 08/23/20 08/23/20 08/24/20 08/24/20 19:38 21:00 00:23 07:55 Temp 99.0 99.0 Pulse 86 83 70 Resp 18 16 20 B/P (MAP) 113/70 (84) 128/81 (97) Pulse Ox 96 90 95 O2 Delivery Room Air Room Air Room Air 08/24/20 08/24/20 08/24/20 08:36 08:38 09:11 Pulse 70 79 Resp 18 B/P (MAP) 128/81 Pulse Ox 98 O2 Delivery Room Air Room Air Intake and Output 08/24/20 07:00 Intake Total 5890 ml Output Total 100 ml Balance 5790 ml Laboratory Tests Test 08/24/20 05:53 White Blood Count 12.0 10^3/uL Red Blood Count 3.16 10^6/uL Hemoglobin 9.7 g/dL Hematocrit 29.6 % Mean Corpuscular Volume 93.7 fL Mean Corpuscular Hemoglobin 30.7 pg Mean Corpuscular Hemoglobin Concent 32.8 g/dL Red Cell Distribution Width 12.3 % Platelet Count 225 10^3/uL Mean Platelet Volume 9.7 fL Current Medications Medications (Trade) Dose Ordered Sig/Noah PRN Reason Start Time Stop Time Status Last Admin Acetaminophen (Tylenol) 1,000 mg Q6HR 08/23/20 18:00 09/22/20 17:59 08/24/20 08:36 Amlodipine Besylate (Norvasc) 5 mg DAILY 08/23/20 09:00 09/22/20 08:59 08/24/20 08:36 Cyanocobalamin (Vitamin B-12) 1,000 mcg DAILY 08/23/20 09:00 09/22/20 08:59 08/24/20 08:36 Diazepam (Valium) 4 mg Q8H PRN MUSCLE SPASM 08/23/20 17:00 09/22/20 16:59 08/24/20 09:20 Docusate Sodium (Colace) 100 mg DAILY 08/23/20 09:00 09/22/20 08:59 08/24/20 08:36 Famotidine (Pepcid) 20 mg DAILY 08/23/20 09:00 09/22/20 08:59 08/24/20 08:36 Hydromorphone HCl (Dilaudid) 2 mg Q4H PRN PAIN 7 - 10 08/23/20 23:30 09/22/20 23:29 08/23/20 23:13 Ketorolac Tromethamine (Toradol) 30 mg Q6H PRN PAIN 7 - 10 08/23/20 14:00 08/28/20 13:59 08/23/20 22:14 Labetalol HCl (Trandate) 10 mg Q4H PRN HYPERTENSION 08/23/20 16:30 09/22/20 16:29 Meperidine HCl (Demerol) 25 mg Q10MIN PRN PAIN 4 - 6 08/23/20 14:22 09/22/20 14:21 08/23/20 14:22 Ondansetron HCl (Zofran) 4 mg Q4H PRN NAUSEA / VOMITING 08/23/20 14:00 09/22/20 13:59 Rivaroxaban (Xarelto) 10 mg DAILY 08/24/20 09:00 09/23/20 08:59 08/24/20 08:36 Throat Lozenges (Cepacol Sore Throat Lozenge) 1 each PRN PRN SORE THROAT 08/23/20 09:00 09/22/20 08:59 Tramadol HCl (Ultram) 50 mg Q6H PRN PAIN 1 - 3 08/23/20 09:00 09/22/20 08:59 Tramadol HCl (Ultram) 100 mg Q6H PRN PAIN 4 - 6 08/23/20 09:00 09/22/20 08:59 08/24/20 09:21 Vancomycin HCl 1 gm/Sodium Chloride 250 ml @ 175 mls/hr Q12H 08/23/20 22:00 08/24/20 23:26 08/23/20 22:12 LEVEL 1 SEPSIS INFECTION CRITE: ABX Therapy, Recent Invasive Procedure LEVEL 2-SIRS (LIST ALL THAT AP: None/Not assessed Cardiovascular Evidence: Not Assessed or None Hematologic Evidence: None/Not assessed Hepatic Evidence: None/Not assessed Metabolic Evidence: None/Not assessed Neurological Evidence: None/Not assessed Respiratory Evidence: None/Not assessed Renal Evidence: None/Not assessed O2 Sat by Pulse Oximetry: 95 Oxygen Flow Rate: 2 Assessment/Plan Assessment/Plan Assessment/Plan Left knee osteoarthritis- Left total knee arthroplasty POD #1 keep dressing intact PT/OT eval and treat- WBAT LLE, CPM, ice man, walker continue medications as prescribed; prn pain medications. DVT prophylaxis start on Xarelto fall and safety precautions remove billingsley Anemia- post surgical. hgb 12 to 9.7 today, no active bleeding noted Plan Left knee osteoarthritis- Left total knee arthroplasty POD #1 keep dressing intact PT/OT eval and treat- WBAT LLE, CPM, ice man, walker continue medications as prescribed; prn pain medications. DVT prophylaxis start on Xarelto fall and safety precautions remove billingsley Anemia- post surgical. hgb 12 to 9.7 today, no active bleeding noted MARCUS SANDOVAL NP Aug 25, 2020 09:10
[2020-08-25] MEDS ORDERED: NEURONTIN ONE (09:36)
[2020-08-25] MEDS: NEURONTIN PO PRN ×2 (09:37→22:25)
[2020-08-25] MEDS: LACTATED RINGERS 1,000 ML IV SCH ×2 (10:00→20:00)
[2020-08-25] MEDS ORDERED: SENSORCAINE-MPF 0.25% VIAL ONE (11:16)
[2020-08-25] MEDS ORDERED: DEXAMETHASONE 10 MG/ML VIAL ONE (11:16)
[2020-08-26 00:09] VITALS: BP 147/91
[2020-08-26] MEDS: TYLENOL PO SCH ×4 (00:43→17:26)
[2020-08-26] MEDS: LACTATED RINGERS 1,000 ML IV SCH (02:55)
[2020-08-26 03:46] VITALS: BP 149/96
[2020-08-26 08:39] VITALS: BP 143/90
--- NOTE | 2020-08-26 09:46 | PRM.DC ---
Discharge Summary Date of Discharge: Aug 26, 2020 Time of Request to Discharge: 09:42 Additional Comments left knee dressing intact, pain controlled labs reviewed stable VSS ambulating well with PT ready to dc home with Patient History: Diabetes mellitus G8 MOTHER G8 BROTHER Hypertension G8 MOTHER G8 BROTHER G8 BROTHER G8 SISTER G8 SISTER No known health problems G8 FATHER G8 SISTER G8 SISTER 19 CHILD 19 CHILD 19 CHILD 19 CHILD No Family History of: Alzheimer's disease Asthma Cerebrovascular disorder Chronic obstructive pulmonary disease Congestive heart failure Diabetes insipidus Parkinson's disease General: Alert, Oriented X3, Cooperative, No acute distress HEENT: Atraumatic, PERRLA, EOMI, Mucous membr. moist/pink Neck: Supple Lungs: Clear to auscultation, Normal air movement Heart: Regular rate Abdomen: Normal bowel sounds, Soft Extremities: No clubbing, No edema, Normal pulses, Other (left knee dressing intact, ambulating well, no drainage noted) Skin: No rashes, No breakdown Neuro: Normal gait, Normal speech Psych/Mental Status: Mental status NL, Mood NL Scheduled Amlodipine Besylate (Amlodipine Besylate), 1 TAB PO DAILY, (Reported) Cyanocobalamin (Vitamin B-12) (Vitamin B-12), 1 TAB PO QD, (Reported) Diclofenac Sodium (Diclofenac Sodium), 1 TAB PO BID, (Reported) Multivitamin (Multi Vitamin Daily), 1 TAB PO QD, (Reported) Tramadol Hcl (Tramadol Hcl), 1 TAB PO BID, (Reported) Sepsis Evaluation @ Discharge Vital Sign - Last 24 Hours 08/23/20 08/23/20 08/23/20 08/23/20 13:26 13:26 13:35 13:40 Temp 97.5 Pulse 79 82 84 Resp 18 18 18 B/P (MAP) 153/83 (106) 200/96 (130) 206/105 (138) Pulse Ox 97 96 100 O2 Delivery Nasal Canula Nasal Canula Nasal Canula O2 Flow Rate 3 4 3 3 08/23/20 08/23/20 08/23/20 08/23/20 13:45 13:50 13:55 14:00 Pulse 80 80 83 75 Resp 18 18 18 18 B/P (MAP) 188/90 (122) 188/90 (122) 175/96 (122) 120/81 (94) Pulse Ox 100 100 100 100 O2 Delivery Nasal Canula Nasal Canula Nasal Canula Nasal Canula O2 Flow Rate 3 3 3 3 08/23/20 08/23/20 08/23/20 08/23/20 14:05 14:10 14:15 14:20 Pulse 71 75 74 79 Resp 18 18 18 18 B/P (MAP) 170/80 (110) 169/96 (120) 159/88 (111) 157/105 (122) Pulse Ox 100 100 100 100 O2 Delivery Nasal Can[place] Nasal Canula Nasal Canula Nasal Canula O2 Flow Rate 3 3 3 2 08/23/20 08/23/20 08/23/20 08/23/20 14:25 14:30 14:35 14:40 Pulse 75 64 65 63 Resp 18 18 18 18 B/P (MAP) 140/101 (114) 150/90 (110) 154/94 (114) 165/98 (120) Pulse Ox 100 100 98 99 O2 Delivery Nasal Can[place] Nasal Canula Room Air Room Air O2 Flow Rate 2 2 08/23/20 08/23/20 08/23/20 08/23/20 14:45 14:50 14:55 15:00 Pulse 65 74 67 77 Resp 18 18 18 18 B/P (MAP) 158/93 (114) 166/90 (115) 158/90 (112) 165/98 (120) Pulse Ox 97 99 97 98 O2 Delivery Room Air Room Air Room Air Room Air 08/23/20 08/23/20 08/23/20 08/23/20 15:05 15:10 15:15 15:20 Pulse 67 67 77 70 Resp 18 18 18 18 B/P (MAP) 161/93 (115) 153/100 (117) 156/86 (109) 147/75 (99) Pulse Ox 97 98 97 96 O2 Delivery Room Air Room Air Room Air Room Air 08/23/20 08/23/20 08/23/20 08/23/20 17:09 17:36 19:09 19:23 Temp 98.7 99.2 Pulse 104 104 103 Resp 21 21 16 B/P (MAP) 161/83 (109) 135/82 (99) Pulse Ox 94 94 93 O2 Delivery Room Air Room Air Room Air 08/23/20 08/23/20 08/24/20 08/24/20 19:38 21:00 00:23 07:55 Temp 99.0 99.0 Pulse 86 83 70 Resp 18 16 20 B/P (MAP) 113/70 (84) 128/81 (97) Pulse Ox 96 90 95 O2 Delivery Room Air Room Air Room Air 08/24/20 08/24/20 08/24/20 08:36 08:38 09:11 Pulse 70 79 Resp 18 B/P (MAP) 128/81 Pulse Ox 98 O2 Delivery Room Air Room Air Intake and Output 08/24/20 07:00 Intake Total 5890 ml Output Total 100 ml Balance 5790 ml Laboratory Tests Test 08/24/20 05:53 White Blood Count 12.0 10^3/uL Red Blood Count 3.16 10^6/uL Hemoglobin 9.7 g/dL Hematocrit 29.6 % Mean Corpuscular Volume 93.7 fL Mean Corpuscular Hemoglobin 30.7 pg Mean Corpuscular Hemoglobin Concent 32.8 g/dL Red Cell Distribution Width 12.3 % Platelet Count 225 10^3/uL Mean Platelet Volume 9.7 fL Current Medications Medications (Trade) Dose Ordered Sig/Noah PRN Reason Start Time Stop Time Status Last Admin Acetaminophen (Tylenol) 1,000 mg Q6HR 08/23/20 18:00 09/22/20 17:59 08/24/20 08:36 Amlodipine Besylate (Norvasc) 5 mg DAILY 08/23/20 09:00 09/22/20 08:59 08/24/20 08:36 Cyanocobalamin (Vitamin B-12) 1,000 mcg DAILY 08/23/20 09:00 09/22/20 08:59 08/24/20 08:36 Diazepam (Valium) 4 mg Q8H PRN MUSCLE SPASM 08/23/20 17:00 09/22/20 16:59 08/24/20 09:20 Docusate Sodium (Colace) 100 mg DAILY 08/23/20 09:00 09/22/20 08:59 08/24/20 08:36 Famotidine (Pepcid) 20 mg DAILY 08/23/20 09:00 09/22/20 08:59 08/24/20 08:36 Hydromorphone HCl (Dilaudid) 2 mg Q4H PRN PAIN 7 - 10 08/23/20 23:30 09/22/20 23:29 08/23/20 23:13 Ketorolac Tromethamine (Toradol) 30 mg Q6H PRN PAIN 7 - 10 08/23/20 14:00 08/28/20 13:59 08/23/20 22:14 Labetalol HCl (Trandate) 10 mg Q4H PRN HYPERTENSION 08/23/20 16:30 09/22/20 16:29 Meperidine HCl (Demerol) 25 mg Q10MIN PRN PAIN 4 - 6 08/23/20 14:22 09/22/20 14:21 08/23/20 14:22 Ondansetron HCl (Zofran) 4 mg Q4H PRN NAUSEA / VOMITING 08/23/20 14:00 09/22/20 13:59 Rivaroxaban (Xarelto) 10 mg DAILY 08/24/20 09:00 09/23/20 08:59 08/24/20 08:36 Throat Lozenges (Cepacol Sore Throat Lozenge) 1 each PRN PRN SORE THROAT 08/23/20 09:00 09/22/20 08:59 Tramadol HCl (Ultram) 50 mg Q6H PRN PAIN 1 - 3 08/23/20 09:00 09/22/20 08:59 Tramadol HCl (Ultram) 100 mg Q6H PRN PAIN 4 - 6 08/23/20 09:00 09/22/20 08:59 08/24/20 09:21 Vancomycin HCl 1 gm/Sodium Chloride 250 ml @ 175 mls/hr Q12H 08/23/20 22:00 08/24/20 23:26 08/23/20 22:12 Course Sepsis Screening Results: Posi: NEGATIVE Sepsis Qualifier/Stage: NO DEFINITE RISK Vitals & review Data Vital Sign - Last 24 Hours 08/23/20 08/23/20 08/23/20 08/23/20 13:26 13:26 13:35 13:40 Temp 97.5 Pulse 79 82 84 Resp 18 18 18 B/P (MAP) 153/83 (106) 200/96 (130) 206/105 (138) Pulse Ox 97 96 100 O2 Delivery Nasal Canula Nasal Canula Nasal Canula O2 Flow Rate 3 4 3 3 08/23/20 08/23/20 08/23/20 08/23/20 13:45 13:50 13:55 14:00 Pulse 80 80 83 75 Resp 18 18 18 18 B/P (MAP) 188/90 (122) 188/90 (122) 175/96 (122) 120/81 (94) Pulse Ox 100 100 100 100 O2 Delivery Nasal Canula Nasal Canula Nasal Canula Nasal Canula O2 Flow Rate 3 3 3 3 08/23/20 08/23/20 08/23/20 08/23/20 14:05 14:10 14:15 14:20 Pulse 71 75 74 79 Resp 18 18 18 18 B/P (MAP) 170/80 (110) 169/96 (120) 159/88 (111) 157/105 (122) Pulse Ox 100 100 100 100 O2 Delivery Nasal Canula Nasal Canula Nasal Canula Nasal Canula O2 Flow Rate 3 3 3 2 08/23/20 08/23/20 08/23/20 08/23/20 14:25 14:30 14:35 14:40 Pulse 75 64 65 63 Resp 18 18 18 18 B/P (MAP) 140/101 (114) 150/90 (110) 154/94 (114) 165/98 (120) Pulse Ox 100 100 98 99 O2 Delivery Nasal Can[place] Nasal Canula Room Air Room Air O2 Flow Rate 2 2 08/23/20 08/23/20 08/23/20 08/23/20 14:45 14:50 14:55 15:00 Pulse 65 74 67 77 Resp 18 18 18 18 B/P (MAP) 158/93 (114) 166/90 (115) 158/90 (112) 165/98 (120) Pulse Ox 97 99 97 98 O2 Delivery Room Air Room Air Room Air Room Air 08/23/20 08/23/20 08/23/20 08/23/20 15:05 15:10 15:15 15:20 Pulse 67 67 77 70 Resp 18 18 18 18 B/P (MAP) 161/93 (115) 153/100 (117) 156/86 (109) 147/75 (99) Pulse Ox 97 98 97 96 O2 Delivery Room Air Room Air Room Air Room Air 08/23/20 08/23/20 08/23/20 08/23/20 17:09 17:36 19:09 19:23 Temp 98.7 99.2 Pulse 104 104 103 Resp 21 21 16 B/P (MAP) 161/83 (109) 135/82 (99) Pulse Ox 94 94 93 O2 Delivery Room Air Room Air Room Air 08/23/20 08/23/20 08/24/20 08/24/20 19:38 21:00 00:23 07:55 Temp 99.0 99.0 Pulse 86 83 70 Resp 18 16 20 B/P (MAP) 113/70 (84) 128/81 (97) Pulse Ox 96 90 95 O2 Delivery Room Air Room Air Room Air 08/24/20 08/24/20 08/24/20 08:36 08:38 09:11 Pulse 70 79 Resp 18 B/P (MAP) 128/81 Pulse Ox 98 O2 Delivery Room Air Room Air Intake and Output 08/24/20 07:00 Intake Total 5890 ml Output Total 100 ml Balance 5790 ml Laboratory Tests Test 08/24/20 05:53 White Blood Count 12.0 10^3/uL Red Blood Count 3.16 10^6/uL Hemoglobin 9.7 g/dL Hematocrit 29.6 % Mean Corpuscular Volume 93.7 fL Mean Corpuscular Hemoglobin 30.7 pg Mean Corpuscular Hemoglobin Concent 32.8 g/dL Red Cell Distribution Width 12.3 % Platelet Count 225 10^3/uL Mean Platelet Volume 9.7 fL Current Medications Medications (Trade) Dose Ordered Sig/Noah PRN Reason Start Time Stop Time Status Last Admin Acetaminophen (Tylenol) 1,000 mg Q6HR 08/23/20 18:00 09/22/20 17:59 08/24/20 08:36 Amlodipine Besylate (Norvasc) 5 mg DAILY 08/23/20 09:00 09/22/20 08:59 08/24/20 08:36 Cyanocobalamin (Vitamin B-12) 1,000 mcg DAILY 08/23/20 09:00 09/22/20 08:59 08/24/20 08:36 Diazepam (Valium) 4 mg Q8H PRN MUSCLE SPASM 08/23/20 17:00 09/22/20 16:59 08/24/20 09:20 Docusate Sodium (Colace) 100 mg DAILY 08/23/20 09:00 09/22/20 08:59 08/24/20 08:36 Famotidine (Pepcid) 20 mg DAILY 08/23/20 09:00 09/22/20 08:59 08/24/20 08:36 Hydromorphone HCl (Dilaudid) 2 mg Q4H PRN PAIN 7 - 10 08/23/20 23:30 09/22/20 23:29 08/23/20 23:13 Ketorolac Tromethamine (Toradol) 30 mg Q6H PRN PAIN 7 - 10 08/23/20 14:00 08/28/20 13:59 08/23/20 22:14 Labetalol HCl (Trandate) 10 mg Q4H PRN HYPERTENSION 08/23/20 16:30 09/22/20 16:29 Meperidine HCl (Demerol) 25 mg Q10MIN PRN PAIN 4 - 6 08/23/20 14:22 09/22/20 14:21 08/23/20 14:22 Ondansetron HCl (Zofran) 4 mg Q4H PRN NAUSEA / VOMITING 08/23/20 14:00 09/22/20 13:59 Rivaroxaban (Xarelto) 10 mg DAILY 08/24/20 09:00 09/23/20 08:59 08/24/20 08:36 Throat Lozenges (Cepacol Sore Throat Lozenge) 1 each PRN PRN SORE THROAT 08/23/20 09:00 09/22/20 08:59 Tramadol HCl (Ultram) 50 mg Q6H PRN PAIN 1 - 3 08/23/20 09:00 09/22/20 08:59 Tramadol HCl (Ultram) 100 mg Q6H PRN PAIN 4 - 6 08/23/20 09:00 09/22/20 08:59 08/24/20 09:21 Vancomycin HCl 1 gm/Sodium Chloride 250 ml @ 175 mls/hr Q12H 08/23/20 22:00 08/24/20 23:26 08/23/20 22:12 LEVEL 1 SEPSIS INFECTION CRITE: ABX Therapy, Recent Invasive Procedure LEVEL 2-SIRS (LIST ALL THAT AP: None/Not assessed Cardiovascular Evidence: Not Assessed or None Hematologic Evidence: None/Not assessed Hepatic Evidence: None/Not assessed Metabolic Evidence: None/Not assessed Neurological Evidence: None/Not assessed Respiratory Evidence: None/Not assessed Renal Evidence: None/Not assessed O2 Sat by Pulse Oximetry: 95 Respiratory End-tidal CO2: 38 Oxygen Flow Rate: 3 Plan Problems: (1) Osteoarthritis of left knee Status: Chronic ICD Code: M17.12 - Unilateral primary osteoarthritis, left knee SNOMED: [id number] (2) Anemia following surgery ICD Code: D64.9 - Anemia, unspecified SNOMED: [id number], [id number] Discharge Date: Aug 26, 2020 Discharge Disposition: Stable Plan Left knee OA- left total knee arthroplasty POD #3. continue medications as prescribed; PRN pain medications DVT prophlaxis- ASA 81 mg BID x30 days PT/OT scheduled for outpatient in [place]; WBAT, keep dressing intact, ice man f/u on Sunday08/30/20 at 4 pm Problem Qualifiers (1) Osteoarthritis of left knee: Osteoarthritis type: primary Qualified Codes: M17.12 - Unilateral primary osteoarthritis, left knee MARCUS SANDOVAL NP Aug 26, 2020 09:46
[2020-08-26] MEDS: VITAMIN B-12 PO SCH (10:09)
[2020-08-26] MEDS: COLACE PO SCH (10:10)
[2020-08-26] MEDS: NEURONTIN PO PRN ×2 (10:10→16:17)
[2020-08-26] MEDS: THERA PO SCH (10:10)
[2020-08-26] MEDS: NORVASC PO SCH (10:10)
[2020-08-26] MEDS: XARELTO PO SCH (10:10)
[2020-08-26] MEDS: PEPCID PO SCH (10:11)
[2020-08-26 12:08] VITALS: BP 154/97
[2020-08-26] MEDS: ULTRAM PO PRN (16:18)
--- NOTE | 2020-08-26 16:24 | NUR ---
DISCHARGE DISCHARGE INSTRUCTIONS GIVEN AND QUESTIONS ANSWERED, VOICED UNDERSTANDING
[2020-08-26 16:37] VITALS: BP 147/92
[2020-08-26 17:55] VITALS: BP 147/92
--- NOTE | 2020-08-26 17:55 | NUR ---
DISCHARGE PT STATES HER PAIN IS 1-2 AND WANTS TO GO HOME, DISCHARGED VIA W/C IN APPARENT STABLE CONDITION TO PRIVATE VEHICLE,
== END 2020-08-26 16:26 | disposition home or self-care (01) | DRG 470 ==
LOC: MS 09:09
PROVIDERS: ADMIT Orthopaedic Surgery; ATTEND Orthopaedic Surgery
PROC: 0SRD0J9 Replacement of Left Knee Joint with Synthetic Substitute, Cemented, Open Approach (ICD-10-PCS; principal; 2020-08-23 10:48)
DX: M17.12 Unilateral primary osteoarthritis, left knee (principal); D64.9 Anemia, unspecified; Z83.3 Family history of diabetes mellitus; Z82.49 Family history of ischemic heart disease and other diseases of the circulatory system; Z79.899 Other long term (current) drug therapy
CPT/HCPCS: 36415; 80053; 82948; 85025; 85027; 87070; 93005; 97162; 97166; A4217; G0378; J1100; J1170; J1885; J2175; J2250; J2795; J3010; J3370; J3490; J7050; J7120; 73560-LT; 97116-GP; 97530-GP; 97535-GO; 97760-GP; C9290